=== PATIENT | male | born 1950 | race Hispanic/Latino ===

== ENCOUNTER → 2019-03-02 | Day surgery (SDC) | payer MEDICARE ==
[2019-02-25 15:31] LABS: BASOPHILS # (AUTO) 0.1 (0.0-0.1); BASOPHILS % 0.8 % (0.0-1.0); EOSINOPHILS # (AUTO) 0.2 (0.0-0.4); EOSINOPHILS % 3.1 % (0.0-6.0); HEMATOCRIT 47.7 % (38.2-49.6); HEMOGLOBIN 15.8 g/dL (14.0-18.0); LYMPHOCYTES # (AUTO) 2.6 (1.0-3.2); LYMPHOCYTES % 33.9 % (18.0-39.1); MEAN CORPUSCULAR HEMOGLOBIN 32.9 pg (28-32); MEAN CORPUSCULAR HGB CONC 33.1 g/dL (31-35); MEAN CORPUSCULAR VOLUME 99.4 fL (81-99); MONOCYTES # (AUTO) 0.5 (0.2-0.8); MONOCYTES % 6.7 % (4.4-11.3); NEUTROPHILS # (AUTO) 4.2 (2.1-6.9); NEUTROPHILS % 55.4 % (38.7-80.0); PLATELET COUNT 169 x10e3/uL (140-360); RED CELL DISTRIBUTION WIDTH 14.5 % (11.7-14.4)
--- NOTE | 2019-02-25 16:25 | Diagnostic Imaging Report ---
EXAM: CHEST 2 VIEWS, PA and lateral DATE: 02/25/2019 Time stamp on exam: 2:10 PM INDICATION: Preoperative for hand surgery. COMPARISON: None FINDINGS: LINES/TUBES: None LUNGS: No consolidations or edema. Chronic appearing bronchovascular markings are noted. PLEURA: No effusions or pneumothorax. HEART AND MEDIASTINUM: Normal size and contour. BONES AND SOFT TISSUES: Degenerative changes of the spine. Plate overlies the lower cervical spine. IMPRESSION: No acute thoracic abnormality. Signed by: Dr. Lucas Shannon DO on 02/25/2019 4:22 PM
[~2019-03-02] MED LIST: BUPIVACAINE 0.25% 30ML SDV INJ ONE; CEFAZOLIN SOD 1 GM/NS 50ML 50 ML IV ONE; DEXAMETHASONE SOD PHOS INJ 4 MG/ML VIAL ONE; FENTANYL CITRATE/PF 100MCG/2 ML INJ ONE; LIDOCAINE HCL 2% LOCAL INJ 5 ML SDV VIAL INJ ONE; MIDAZOLAM HCL 2 MG/2 ML VIAL ONE; MUPIROCIN 2% OINT 22 GM TUBE ONE; ONDANSETRON HCL INJ 2MG/ML 2ML 2 MG/ML VIAL ONE; PROPOFOL IV EMULSION 10 MG/ML 20 ML VIAL ONE; SEVOFLURANE INHAL SOLN 250 ML PEN BTL ONE
--- OUTSIDE RECORDS SUMMARY | 2019-03-02 06:41 | XMS REPORT ---
[facility] Address Unknown Phone Unavailable Care Team Providers Care Finish Grinder Name Role Phone JEMIMA OWEN Unavailable Unavailable Payers Payer Name Policy Type Policy Number Effective Date Expiration Date Problems This patient has no known problems. Allergies, Adverse Reactions, Alerts Allergy Name Allergy Type Status Severity Reaction(s) Onset Date Inactive Date Treating Clinician Comments No Known Allergies DA Active U 2018-12-11 00:00:00 Medications This patient has no known medications. Results Test Description Test Time Test Comments Text Results Atomic Results Result Comments CHEST 2 VIEWS 2019-02-25 16:17:00 [facility] [address] [id number] Patient Name: CHRISTINA HERRING MR #: [id number] : 1950 Age/Sex: 68/M Req #: [id number] Adm Physician: Ordered by: JEMIMA OWEN MD Report #: [id number] Location: OR Room/Bed: Procedure: [id number] DX/CHEST 2 VIEWS Exam Date: 02/25/19 Exam Time: 1410 REPORT STATUS: Signed EXAM: CHEST 2 VIEWS, PA and lateral DATE: 02/25/2019 Time stamp on exam: 2:10 PM INDICATION: Preoperative for hand surgery. COMPARISON: None FINDINGS: LINES/TUBES: None LUNGS: No consolidations or edema. Chronic appearing bronchovascular markings are noted. PLEURA: No effusions or pneumothorax. HEART AND MEDIASTINUM: Normal size and contour. BONES AND SOFT TISSUES: Degenerative changes of the spine. Plate overlies the lower cervical spine. IMPRESSION: No acute thoracic abnormality. Signed by: Dr. Lucas Frank DO on 02/25/2019 4:22 PM Dictated By: LUCAS FRANK DO 21 Transcribed By: NAVDEEP on 02/25/191621 COPY TO: JEMIMA OWEN MD - XR C-SPINE 2-3 VIEWS 2019-01-11 15:09:00 FAX: Emmanuel Sullivan MD [phone] [place]: O St: REG FAX: Alejandro Arizmendi MD [phone] Name: CHRISTINA HERRING [facility] : 1950 Age/S: 68/M [address] [facility] Unit #: [id number] Loc: [place] [address] Phys: Emmanuel Tello MD Acct: [id number] Dis Date: Status: REG CLI PHONE #: [phone] Exam Date: 01/11/2019 1147 FAX #: [phone] Reason: CERVICAL DISC HERNIATION EXAMS: CPT CODE: [id number] XR C-SPINE 2-3 VIEWS 11693 HISTORY: Cervical fusion. COMPARISON: December 15, 2018. Cervical fusion from C5 through C7 with metallic plate and bone graft in good anatomic alignment. Vertebral body heights are maintained. Soft tissue calcification posterior to the C4 and C5 spinous process. Uncovertebral joints are narrowed. Lung apices are clear. IMPRESSION: Cervical fusion from C5 through C7 with metallic plate and bone graft in good anatomic alignment. at 1509 Reported and signed by: Dave Salas M.D. CC: Emmanuel Tello MD; Alejandro Mora MD Technologist: Camacho Jj RT(R) Trnscrd Date/Time/By: 01/11/2019 (1509) : By: [email or web address] Orig Print D/T: S: 01/11/2019 (0064) PAGE 1 Signed Report INTERVERTEBRAL DISC 2018-12-15 16:08:00 RUN DATE: 12/15/18 [facility] PAGE 1 RUN TIME: 1608 Specimen Inquiry RUN USER: INTERFACE PATIENT: CHRISTINA HERRING Zakiya LOC: ANA LILIA U #: [id number] AGE/SX: 68/M ROOM: [facility] RE12/14/18REG DR: Emmanuel Tello MD : 46 BED: A DIS: 12/15/18 STATUS: DIS Otilio TLOC: SPEC #: [id number] RECD: 12/14/18 STATUS: RADHA RODRIGUEZ #: [id number] JOSE R: 12/14/[address] [facility] [address]: Emmanuel Tello MD ENTERED: 12/14/18 SP TYPE: INT DISC OTHR DR: Alejandro Mora MD ORDERED: GROSS COPIES TO: Emmanuel Tello MD [address] [id number] Alejandro Mora MD [address] [id number] PROCEDURES: GROSS (12/15/18-115) TISSUES: CERVICAL VERTEBRA, NOS - DISC CLINICAL HISTORY COLLECTION DATE: 12/14/18 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 It consists of irregular fragments of light peña-pink fibrous appearing tissue measuring 3.0 X 3.0 X up to 0.7 cm in aggregate. Small fragments of possible bone are present. After decalcification account service representative portions of tissue are submitted for histologic CONTINUED ON NEXT PAGE RUN DATE: 12/15/18 [facility] PAGE 2 RUN TIME: 1608 Specimen Inquiry RUN USER: INTERFACE SPEC #: [id number] PATIENT: CHRISTINA HERRING Zaikya #[id number] (Continued)----- MACROSCOPIC (Continued) evaluation in a single cassette. GROSS PERFORMED AT [facility] [address] [place] [address] [phone] MICROSCOPIC All of the stains, including any controls performed, stain appropriately. MICROSCOPIC PERFORMED AT [facility] [address] [place] [address] [phone] PERFORMING SITE Diagnosis performed at: [facility], [place] [address] [facility] [place] [address] Signed SIGNATURE ON FILE Jase Juan MD 12/15/18 1608 END OF REPORT - XR C-SPINE 2-3 VIEWS 2018-12-15 09:08:00 FAX: Emmanuel Sullivan MD [phone] [place]: St: [facility] FAX: Alejandro Arizmendi MD [phone] Name: CHRISTINA HERRING [facility] : 1950 Age/S: 68/M [address] [facility] Unit #: [id number] Loc: [address] [place] [address] Phys: Emmanuel Tello MD Acct: [id number] Dis Date: Status: ADM IN PHONE #: [phone] Exam Date: 12/15/2018 0852 FAX #: [phone] Reason: Status post fusion EXAMS: CPT CODE: [id number] XR C-SPINE 2-3 VIEWS 34887 HISTORY: Post fusion. COMPARISON: None available. AP and lateral view of the cervical spine: Cervical fusion from C5 through C7 with metallic internal fixation plate and bone graft in good anatomic alignment. Vertebral body heights are maintained. Soft tissue co nstipation posterior to the C4-C5 spinous process. Soft tissue swelling. Uncovertebral joints are narrowed. Lung apices are clear. IMPRESSION: Cervical fusion with metallic plate and bone graft from C5 through C7 in good anatomic alignment. at 0908 Reported and signed by: Dave Salas M.D. CC: Emmanuel Tello MD; Alejandro Mora MD Technologist: Virginia Viramontes(R); STUDENT TECHNOLOGIST Leanneidradha Date/Time/By: 12/15/2018 (0951) : By: [email or web address] Orig Print D/T: S: 12/15/2018 (6384) PAGE 1 Signed Report - XR CHEST 2 V 2018-12-11 14:29:00 FAX: Emmanuel Sullivan MD [phone] [place]: O St: PRE FAX: Alejandro Arizmendi MD [phone] Name: CHRISTINA HERRING [facility] : 1950 Age/S: 68/M [address] [facility] Unit #: [id number] Loc: [place] [address] Phys: Emmanuel Tello MD Acct: [id number] Dis Date: Status: PRE IN PHONE #: [phone] Exam Date: 12/11/2018 1420 FAX #: [phone] Reason: PRE OP EXAMS: CPT CODE: [id number] XR CHEST 2 V 90314 REASON FOR EXAM: PRE OP Exam Order Date: 12/11/2018 1:44 PM Ordering M.DMary: Emmanuel Tello MD PROCEDURE: - XR CHEST 2 V COMPARISON: None FINDINGS: The lungs are clear. There is no pleural effusion or pneumothorax. Pulmonary vascularity is within normal limits. Cardiomediastinal silhouette is normal in size for technique. The mediastinal contours are within normal limits. The bones show degenerative changes. The visualized upper abdomen is within normal limits. IMPRESSION: No acute cardiopulmonary process. at 1422 Reported and signed by: Radha Carrillo M.D. CC: Emmanuel Tello MD; Alejandro Mora MD Technologist: MINDY PHILLIPS (R) Trnscrd Date/Time/By: 12/11/2018 (5895) : By: [email or web address] Orig Print D/T: S: 12/11/2018 (9806) PAGE 1 Signed Report BASIC METABOLIC PANEL 2018-12-11 14:19:00 SODIUM (test code=NA) 141 mmol/L 136-145 POTASSIUM (test code=K) 4.3 mmol/L 3.5-5.1 CHLORIDE (test code=CL) 106.0 mmol/L 98-107 CARBON DIOXIDE (test code=CO2) 31.0 mmol/L 21-32 ANION GAP (test code=GAP) 8.3 10-20 GLUCOSE (test code=GLU) 97 mg/dL 74-106 BLOOD UREA NITROGEN (test code=BUN) 19 mg/dL 7-18 GLOMERULAR FILTRATION RATE (test code=GFR) > 60 mL/min >=60 Estimated GFR by using Modified MDRD formula.Chronic kidney disease is defined as either kidney damageor GFR <60 mL/min/1.73 m2 for >3 months. CREATININE (test code=CREAT) 0.90 mg/dL 0.7-1.3 BUN/CREATININE RATIO (test code=BUN/CREA) 21.1 10-20 CALCIUM (test code=CA) 8.7 mg/dL 8.5-10.1 PROTHROMBIN [id number] 14:17:00* Test Item Value Reference Range Comments PROTHROMBIN TIME PATIENT (test code=PTP) 12.1 seconds 9.0-14.0 INTERNATIONAL NORMAL RATIO (test code=INR) 1.0 0.8-1.2 The therapeutic range for oral anticoagulant therapy formost indications is an international normalized ratio (INR)of between 2.0 and 3.0. The recommended therapeutic INRrange for various clinical situations is listed below: Clinical Situation INR range Pulmonary e mbolism treatment (2.0-3.0)Venous thrombosis treatmentVenous thrombosis prophylaxis (high risk surgery)Prevention of systemic embolism from: Acute myocardial infarction Valvular heart disease Atrial fibrillation Mechanical prosthetic heart valves (2.5-3.5) THROMBOPLASTIN TIME [id number] 14:17:00* Test Item Value Reference Range Comments THROMBOPLASTIN TIME PARTIAL (test code=PTT) 36.7 seconds 25.0-36.5 BASIC METABOLIC [id number] 14:12:00* Test Item Value Reference Range Comments SODIUM (test code=NA) 141 mmol/L 136-145 POTASSIUM (test code=K) 4.3 mmol/L 3.5-5.1 CHLORIDE (test code=CL) 106.0 mmol/L 98-107 CARBON DIOXIDE (test code=CO2) mmol/L 21-32 ANION GAP (test code=GAP) 10-20 GLUCOSE (test code=GLU) mg/dL 74-106 BLOOD UREA NITROGEN (test code=BUN) mg/dL 7-18 GLOMERULAR FILTRATION RATE (test code=GFR) mL/min >=60 CREATININE (test code=CREAT) mg/dL 0.7-1.3 BUN/CREATININE RATIO (test code=BUN/CREA) 10-20 CALCIUM (test code=CA) 8.7 mg/dL 8.5-10.1 CBC W/AUTO [id number] 14:05:00* Test Item Value Reference Range Comments WHITE BLOOD CELL (test code=WBC) 8.4 K/mm3 4.5-12.5 RED BLOOD CELL (test code=RBC) 5.04 mill/mm3 4.0-5.8 HEMOGLOBIN (test code=HGB) 16.2 gram/dL 13.0-17.5 HEMATOCRIT (test code=HCT) 50.8 % 42.0-52.0 MEAN CELL VOLUME (test code=MCV) 100.8 fL 80-98 MEAN CELL HGB (test code=MCH) 32.1 picogram 27.0-33.0 MEAN CELL HGB CONCETRATION (test code=MCHC) 31.9 gram/dL 33.0-36.0 RED CELL DISTRIBUTION WIDTH (test code=RDW) 13.7 % 11.6-16.2 RED CELL DISTRIBUTION WIDTH SD (test code=RDW-SD) 51.6 fL 37.0-51.0 PLATELET COUNT (test code=PLT) 143 K/mm3 150-450 MEAN PLATELET VOLUME (test code=MPV) 12.0 fL 6.7-11.0 NEUTROPHIL % (test code=NT%) 59.5 % 39.0-69.0 IMMATURE GRANULOCYTE % (test code=IG%) 0.2 % 0.0-5.0 LYMPHOCYTE % (test code=LY%) 29.2 % 25.0-55.0 MONOCYTE % (test code=MO%) 7.2 % 0.0-10.0 EOSINOPHIL % (test code=EO%) 3.1 % 0.0-5.0 BASOPHIL % (test code=BA%) 0.8 % 0.0-1.0 NUCLEATED RBC % (test code=NRBC%) 0.0 % 0-0 NEUTROPHIL # (test code=NT#) 4.99 K/mm3 1.8-7.7 IMMATURE GRANULOCYTE # (test code=IG#) 0.02 x10 3/uL 0-0.03 LYMPHOCYTE # (test code=LY#) 2.45 K/mm3 1.0-5.0 MONOCYTE # (test code=MO#) 0.60 K/mm3 0-0.8 EOSINOPHIL # (test code=EO#) 0.26 K/mm3 0.0-0.5 BASOPHIL # (test code=BA#) 0.07 K/mm3 0.0-0.2 NUCLEATED RBC # (test code=NRBC#) 0.00 K/mm3 0.0-0.1 MANUAL DIFF REQUIRED (test code=MDIFF) NO CBC W/AUTO [id number] 14:03:00* Test Item Value Reference Range Comments WHITE BLOOD CELL (test code=WBC) K/mm3 4.5-12.5 RED BLOOD CELL (test code=RBC) mill/mm3 4.0-5.8 HEMOGLOBIN (test code=HGB) 16.2 gram/dL 13.0-17.5 HEMATOCRIT (test code=HCT) 50.8 % 42.0-52.0 MEAN CELL VOLUME (test code=MCV) fL 80-98 MEAN CELL HGB (test code=MCH) picogram 27.0-33.0 MEAN CELL HGB CONCETRATION (test code=MCHC) gram/dL 33.0-36.0 RED CELL DISTRIBUTION WIDTH (test code=RDW) % 11.6-16.2 RED CELL DISTRIBUTION WIDTH SD (test code=RDW-SD) fL 37.0-51.0 PLATELET COUNT (test code=PLT) K/mm3 150-450 MEAN PLATELET VOLUME (test code=MPV) fL 6.7-11.0 NEUTROPHIL % (test code=NT%) % 39.0-69.0 IMMATURE GRANULOCYTE % (test code=IG%) % 0.0-5.0 LYMPHOCYTE % (test code=LY%) % 25.0-55.0 MONOCYTE % (test code=MO%) % 0.0-10.0 EOSINOPHIL % (test code=EO%) % 0.0-5.0 BASOPHIL % (test code=BA%) % 0.0-1.0 NEUTROPHIL # (test code=NT#) K/mm3 1.8-7.7 LYMPHOCYTE # (test code=LY#) K/mm3 1.0-5.0 MONOCYTE # (test code=MO#) K/mm3 0-0.8 EOSINOPHIL # (test code=EO#) K/mm3 0.0-0.5 BASOPHIL # (test code=BA#) K/mm3 0.0-0.2
[2019-03-02 09:35] VITALS: BP 158/86
--- NOTE | 2019-03-02 15:02 | Operative Report ---
DATE OF PROCEDURE: 03/02/2019 SURGEON: Dexter Bowens MD PREOPERATIVE DIAGNOSIS: Right carpal tunnel syndrome. POSTOPERATIVE DIAGNOSES: 1. Right carpal tunnel syndrome. 2. Flexor tenosynovitis, right wrist. PROCEDURE: 1. Right open carpal tunnel release. 2. Flexor tenosynovectomy, right wrist. ANESTHESIA: General. HISTORY: The patient is a 68 years old with EMG-proven right carpal tunnel syndrome. Risks, benefits and alternatives of treatment were discussed with the patient. The patient is prepared to undergo the procedure as outlined. DESCRIPTION OF PROCEDURE: The patient was brought to the operating theater. After the induction of adequate general inhalation anesthesia, the patient was prepped and draped in the supine position. A time out was performed by the entire operating room team. A 2.5 cm incision was marked out in the intrathenar space. The right upper extremity was exsanguinated, and a tourniquet was inflated to a pressure of 250 mmHg. The incision was made through the skin and subcutaneous tissues and all venous tributaries were controlled with bipolar cautery. The incision was deepened through the palmar fascia until the transverse carpal ligament was identified. The ligament was sharply sectioned, taking care to protect and preserve the median nerve underlying it. After the complete width of the ligament had been transected, the distal volar forearm fascia was divided under direct view. Proliferative flexor tenosynovium was noticed to encompass the median nerve and this was radically excised. After performing this maneuver, the nerve was noted to lie adequately decompressed. The wound was copiously irrigated with bacteriostatic saline, closed with 5-0 nylon in an interrupted horizontal mattress fashion. A Marcaine field block was performed at the operative site. Tourniquet was deflated. All of the fingers pinked up nicely and a sterile bulking conforming bandage was applied to the hand and the wrist. A fiberglass splint was fashioned to maintain the wrist in a modest amount of extension. This was held in place with a loosely wrapped Stiven wrap. The patient tolerated the procedure well and was brought to the recovery room in satisfactory condition and discharged with a postoperative instruction sheet as well as a followup appointment. Dexter Bowens MD ER/MODL /[id number]
== END | disposition home or self-care (01) ==
LOC: OR 06:39
PROVIDERS: ATTEND Plastic Surgery
DX: G56.01 Carpal tunnel syndrome, right upper limb (principal); M65.841 Other synovitis and tenosynovitis, right hand; J44.9 Chronic obstructive pulmonary disease, unspecified; F17.210 Nicotine dependence, cigarettes, uncomplicated; Z01.810 Encounter for preprocedural cardiovascular examination; Z01.812 Encounter for preprocedural laboratory examination; Z01.818 Encounter for other preprocedural examination
CPT/HCPCS: 25115; 36415; 71046; 85025; 93005; J0690; J1100; J2001; J2250; J2405; J2704

== ENCOUNTER 2024-11-04 23:14 | Emergency (ER) | payer MEDICARE ==
[~2024-11-04] VITALS: Ht 165.1 cm; Wt 63.5 kg
[2024-11-04 23:47] VITALS: PULSE 110; RESP 26; TEMP 98.2
[2024-11-05 00:25] LABS: BASOPHILS # (AUTO) 0.1 (0.0-0.1); BASOPHILS % 0.6 % (0.0-1.0); EOSINOPHILS # (AUTO) 0.2 (0.0-0.4); EOSINOPHILS % 2.5 % (0.0-6.0); HEMATOCRIT 44.3 % (38.2-49.6); HEMOGLOBIN 14.6 g/dL (14.0-18.0); LYMPHOCYTES # (AUTO) 1.7 (1.0-3.2); LYMPHOCYTES % 19.2 % (18.0-39.1); MEAN CORPUSCULAR HEMOGLOBIN 31.3 pg (28-32); MEAN CORPUSCULAR VOLUME 95.1 fL (81-99); MONOCYTES # (AUTO) 0.6 (0.2-0.8); NEUTROPHILS # (AUTO) 6.2 (2.1-6.9); NEUTROPHILS % 70.6 % (38.7-80.0); PLATELET COUNT 132 x10e3/uL (140-360); RED BLOOD COUNT 4.66 x10e6/uL (4.3-5.7); RED CELL DISTRIBUTION WIDTH 13.8 % (11.7-14.4)
[2024-11-05 00:59] LABS: CORONAVIRUS COVID-19 AG NEGATIVE (NEGATIVE); INFLUENZA A AG NEGATIVE (NEGATIVE); INFLUENZA B AG NEGATIVE (NEGATIVE); STREPTOCOCCUS GRP A ANTIGEN NEGATIVE (NEGATIVE)
[2024-11-05 01:01] LABS: ALANINE AMINOTRANSFERASE 15 IU/L (0-55); ALBUMIN 4.3 g/dL (3.5-5.0); ALBUMIN/GLOBULIN RATIO 1.5 (0.8-2.0); ALKALINE PHOSPHATASE 93 IU/L (40-150); ANION GAP 13.2 mmol/L (8-16); BILIRUBIN,TOTAL 0.5 mg/dL (0.2-1.2); BLOOD UREA NITROGEN 17 mg/dL (7-26); BUN/CREATININE RATIO 20 (6-25); CALCIUM 9.3 mg/dL (8.4-10.2); CARBON DIOXIDE 22 mmol/L (22-29); CHLORIDE 107 mmol/L (98-107); CREATINE KINASE 65 IU/L (30-200); CREATININE, SERUM 0.86 mg/dL (0.72-1.25); EST GLOMERULAR FILTRATION RATE 90 ML/MIN (>=60); GLUCOSE 102 mg/dL (74-118); POTASSIUM 4.2 mmol/L (3.5-5.1); SODIUM 138 mmol/L (136-145); TOTAL PROTEIN 7.1 g/dL (6.5-8.1)
[2024-11-05 01:52] LABS: TROPONIN I < 0.001 ng/mL (0-0.300)
[2024-11-05] MEDS ORDERED: VENTOLIN HFA18 GM INH (02:02)
[2024-11-05] MEDS ORDERED: AZITHROMYCIN250 MG PO (02:02)
[2024-11-05] MEDS ORDERED: PREDNISONE20 MG PO (02:02)
[2024-11-05 02:29] VITALS: BP 129/68; PULSE 68; RESP 18; TEMP 98.3; O2SAT 98
[2024-11-05] MEDS ORDERED: IOPAMIDOL 370 MG/ML 100 ML INFUS..BTL INJ ONE (05:23)
== END 2024-11-05 02:10 | disposition home or self-care (01) ==
LOC: ER 23:26
DX: R04.2 Hemoptysis (principal); J18.9 Pneumonia, unspecified organism; E78.5 Hyperlipidemia, unspecified; Z11.52 Encounter for screening for COVID-19; R94.31 Abnormal electrocardiogram [ECG] [EKG]; Z86.718 Personal history of other venous thrombosis and embolism; F17.210 Nicotine dependence, cigarettes, uncomplicated
CPT/HCPCS: 36415; 71260; 80053; 82550; 83518; 83690; 83880; 84484; 85025; 87070; 87428; 93005; 99284; Q9967